=== PATIENT | female | born 1980 | race Caucasian/White ===

== ENCOUNTER → 2017-11-24 | Emergency (ER) | payer OTHER ==
[~2017-11-24] VITALS: Ht 165.1 cm; Wt 79.4 kg
[~2017-11-24] MED LIST: AMOX-CLAV 875-1 EACH PO; INTESTINEX680 M1 PO; KETO10TA2 PO
== END | disposition home or self-care (01) ==
LOC: ER 01:43
DX: K04.7 Periapical abscess without sinus (principal)